=== PATIENT | male | born 1985 | race Caucasian/White ===

== ENCOUNTER 2017-12-07 23:52 | Emergency (ER) | payer OTHER ==
[~2017-12-07] VITALS: Ht 180.3 cm; Wt 99.9 kg
[~2017-12-07 23:52] MED LIST: LEVO1TAB35 PO
[2017-12-07 23:53] VITALS: TEMP 37.4; Ht 180.3 cm; Wt 99.9 kg
[2017-12-08 00:05] VITALS: O2SAT 97
[2017-12-08] MEDS ORDERED: SODIUM CHLORIDE 0.9% 1000ML 1,000 ML IV STA (00:08)
[2017-12-08 00:21] LABS: BASO % 0.6 %; BASO ABS # 0.06 K/uL (0-0.2); EOS % 2.4 %; EOS ABS # 0.26 K/uL (0-0.5); HEMATOCRIT 42.5 % (42-52); HEMOGLOBIN 14.9 g/dL (14.0-18.0); IG# 0.02 K/uL (0.00-0.02); LYMPH % 44.9 %; LYMPH ABS # 4.86 K/uL (1.2-3.4); MEAN CELL VOLUME 90.2 fL (80-100); MEAN CORPUSCULAR HEMOGLOBIN 31.6 pg (25-34); MEAN CORPUSCULAR HGB CONC 35.1 g/dl (32-36); MEAN PLATELET VOLUME 11.4 fL (7.4-10.4); MONO % 12.8 %; MONO ABS # 1.39 K/uL (0.11-0.59); NEUT % 39.1 %; NEUT ABS # 4.24 K/uL (1.4-6.5); PLATELET COUNT 177 K/uL (130-400); RED CELL DISTRIBUTION WIDTH CV 12.5 % (11.5-14.5); RED CELL DISTRIBUTION WIDTH SD 41.3 fL (36.4-46.3); WHITE BLOOD COUNT 10.83 K/uL (4.8-10.8)
--- NOTE | 2017-12-08 00:21 | EMERGENCY ROOM VISIT NOTE ---
History Report prepared by Glen: Tiera Barrow Under the Supervision of: Dr. Camille Velez M.D. First contact with patient: 23:59 Chief Complaint: SYNCOPE Stated Complaint: SYNCOPE Nursing Triage Summary: Patient arrived ALS for evaluation s/p syncope. EMS reports patient drank some coffee today and monster energy drinks and tonight while in bed had what described as a syncopal episode. Patient began vomiting immediately. Patient now reports lightheadedness and dizziness. Patient was given Zofran 4 mg IVP by EMS. Denies pain. Patient reports he drank 3 10 oz cups of coffee and 2 monster energy drinks today. History of Present Illness The patient is a 31 year old male who presents to the Emergency Room with complaints of sudden seizure-like activity occurring shortly prior to arrival. Per , the patient began to "move his arms weird" when she got out of the bathroom. "He was unable to get words out." His reports that the patient then began to vomit while in bed and then fell off of the bed and began to do a humping motion. She assisted his fall, she does not believe he was injured. She states that she called EMS. The patient remained confused after the episode for about 20 minutes. The patient states that he had 3, 10 oz of coffees and 2 monster energy drinks yesterday. He states that he does not take any medications daily. He denies using protein/workout supplements. The patient also reports that he has not smoked marijuana in 3 weeks and that he has been getting around 6 hours of sleep per night, but admits he does not sleep well. Source of History: family, spouse/significant other (girlfriend) Onset: shortly prior to arrival Position: other (global) Quality: other (seizure-like activity ) Timing: other (sudden ) Associated Symptoms: + vomiting Review of Systems See HPI for pertinent positives & negatives. A total of 10 systems reviewed and were otherwise negative. Past Medical & Surgical Medical Problems: (1) No active medical problems Family History Cancer Heart disease Kidney disease Social History Smoking Status: Current Every Day Smoker Drug Use: marijuana Marital Status: Housing Status: lives alone Occupation Status: unemployed, other () Current/Historical Medications No Active Prescriptions or Reported Meds Allergies Coded Allergies: No Known Allergies (Verified , 12/08/17) Physical Exam Vital Signs Date Time Temp Pulse Resp B/P (MAP) Pulse Ox O2 Delivery O2 Flow Rate FiO2 12/08/17 02:35 78 18 125/79 95 Room Air 12/08/17 01:59 81 18 113/60 97 Room Air 12/08/17 01:01 84 18 110/70 96 Room Air 75 121/82 91 119/74 12/08/17 00:05 92 12/08/17 00:05 97 Room Air 12/07/17 23:53 37.4 94 18 140/81 96 Room Air Physical Exam Vital signs reviewed. General: Well-appearing male, in no significant distress. Smells like emesis. HEENT: No scleral icterus, PERRLA, neck supple. Atraumatic. Cardiovascular: Regular rate and rhythm, no extra sounds. Pulmonary: Clear to auscultation bilaterally, normal work of breathing. Abdomen: Soft, nontender, nondistended, positive bowel sounds. Musculoskeletal: Atraumatic, no peripheral edema. Neurologic: Patient awake alert and oriented x 3, full strength in all 4 extremities. Cranial nerves 2 through 12 grossly intact. Skin: Warm, dry, no rash Medical Decision & Procedures ER Provider Diagnostic Interpretation: Radiology results as stated below per my review and [facility]. CT HEAD: No acute intracranial process. Radiology results as stated below per my review. Chest X-Ray: No focal lung consolidation. No failure. Normal mediastinal silhouette. Laboratory Results 12/08/17 00:00 Red Blood Count 4.71, Mean Corpuscular Volume 90.2, Mean Corpuscular Hemoglobin 31.6, Mean Corpuscular Hemoglobin Concent 35.1, Mean Platelet Volume 11.4, Neutrophils (%) (Auto) 39.1, Lymphocytes (%) (Auto) 44.9, Monocytes (%) (Auto) 12.8, Eosinophils (%) (Auto) 2.4, Basophils (%) (Auto) 0.6, Neutrophils # (Auto ) 4.24, Lymphocytes # (Auto) 4.86, Monocytes # (Auto) 1.39, Eosinophils # (Auto ) 0.26, Basophils # (Auto) 0.06 12/08/17 00:00 Test 12/07/17 23:55 12/08/17 00:00 12/08/17 00:18 Urine Color YELLOW Urine Appearance CLEAR (CLEAR) Urine pH 5.5 (4.5-7.5) Urine Specific Dawn 1.034 (1.000-1.030) Urine Protein NEG (NEG) Urine Glucose (UA) NEG (NEG) Urine Ketones TRACE (NEG) Urine Occult Blood NEG (NEG) Urine Nitrite NEG (NEG) Urine Bilirubin NEG (NEG) Urine Urobilinogen NEG (NEG) Urine Leukocyte Esterase NEG (NEG) Urine Opiates Screen NEG (NEG) Urine Methadone, Qualitative NEG (NEG) Urine Barbiturates NEG (NEG) Urine Phencyclidine (PCP) Level NEG (NEG) Ur Amphetamine/Methamphetamine NEG (NEG) MDMA (Ecstasy) Screen NEG (NEG) Urine Benzodiazepines Screen NEG (NEG) Urine Cocaine Metabolite NEG (NEG) Urine Marijuana (THC) POS (NEG) White Blood Count 10.83 K/uL (4.8-10.8) Red Blood Count 4.71 M/uL (4.7-6.1) Hemoglobin 14.9 g/dL (14.0-18.0) Hematocrit 42.5 % (42-52) Mean Corpuscular Volume 90.2 fL (80-100) Mean Corpuscular Hemoglobin 31.6 pg (25-34) Mean Corpuscular Hemoglobin Concent 35.1 g/dl (32-36) Platelet Count 177 K/uL (130-400) Mean Platelet Volume 11.4 fL (7.4-10.4) Neutrophils (%) (Auto) 39.1 % Lymphocytes (%) (Auto) 44.9 % Monocytes (%) (Auto) 12.8 % Eosinophils (%) (Auto) 2.4 % Basophils (%) (Auto) 0.6 % Neutrophils # (Auto) 4.24 K/uL (1.4-6.5) Lymphocytes # (Auto) 4.86 K/uL (1.2-3.4) Monocytes # (Auto) 1.39 K/uL (0.11-0.59) Eosinophils # (Auto) 0.26 K/uL (0-0.5) Basophils # (Auto) 0.06 K/uL (0-0.2) RDW Standard Deviation 41.3 fL (36.4-46.3) RDW Coefficient of Variation 12.5 % (11.5-14.5) Immature Granulocyte % (Auto) 0.2 % Immature Granulocyte # (Auto) 0.02 K/uL (0.00-0.02) Anion Gap 9.0 mmol/L (3-11) Est Creatinine Clear Calc Drug Dose 89.3 ml/min Estimated GFR () 74.6 Estimated GFR (Non- 64.3 BUN/Creatinine Ratio 14.8 (10-20) Calcium Level 8.9 mg/dl (8.5-10.1) Magnesium Level 2.3 mg/dl (1.8-2.4) Total Bilirubin 0.2 mg/dl (0.2-1) Direct Bilirubin < 0.1 mg/dl (0-0.2) Aspartate Amino Transf (AST/SGOT) 30 U/L (15-37) Alanine Aminotransferase (ALT/SGPT) 38 U/L (12-78) Alkaline Phosphatase 63 U/L (45-117) Total Creatine Kinase 706 U/L (39-308) Creatine Kinase MB 3.8 ng/ml (0.5-3.6) Creatine Kinase MB Ratio 0.5 (0-3.0) Total Protein 8.2 gm/dl (6.4-8.2) Albumin 4.2 gm/dl (3.4-5.0) Thyroid Stimulating Hormone (TSH) 3.310 uIu/ml (0.300-4.500) Salicylates Level 2.9 mg/dl (2.8-20) Acetaminophen Level < 2 ug/ml (10-30) Ethyl Alcohol mg/dL < 3.0 mg/dl (0-3) Laboratory results per my review. Medications Administered Medications (Trade) Dose Ordered Sig/Carl Route Start Time Stop Time Status Last Admin Dose Admin Sodium Chloride 1,000 ml @ 999 mls/hr Q1H1M STAT IV 12/08/17 00:08 12/08/17 01:08 DC 12/08/17 00:20 999 MLS/HR ECG Per My Interpretation Indication: other (seizure-like activity ) Rate (beats per minute): 86 Rhythm: normal sinus Findings: no ectopy, other (J point elevation consistent with early repolarization, no PVCs, no PACs, normal intervals ) ED Course 0005: Past medical records reviewed. The patient was evaluated in room B11B. A complete history and physical examination was performed. 0008: Ordered Sodium Chloride 1,000 ml @ 999 mls/hr IV. 0211: I updated the patient and his family. 0233: Upon reevaluation, the patient appeared to have improvement of his symptoms. I discussed findings with him. He verbalized agreement of the treatment plan. He was discharged home. Medical Decision Differential diagnosis: Etiologies such as infection, hypoglycemia, electrolyte abnormalities, cardiac sources, intracerebral event, trauma, toxicologic, neurologic, as well as others were entertained. This pt was evaluated and appeared to be in no distress. He was somewhat agitated, but cooperative. PE is unrevealing. CT head was performed and is negative. Lab work is significant for a mildly elevated creatinine. Pt was hydrated with NSS as it maybe r/t a mild dehydration. Pt was advised of the findings. He was advised not to drive until he is cleared by neurology. [employer] form was submitted. Pt was asked to avoid stimulants, particularly in excess. He will drink plenty of fluids and f/u with neurology CATHI. He was given contact info for Dr Walsh, the on-call neurologist. Case management will assist in scheduling during the daytime hours if necessary. Pt was d/c in care of his family. Medication Reconcilliation Current Medication List: was personally reviewed by me Blood Pressure Screening Patient's blood pressure: Normal blood pressure Impression Primary Impression: Seizure Additional Impression: Adverse effect of TRANSPORTATION CONSULTANT stimulant Scribe Attestation The scribe's documentation has been prepared under my direction and personally reviewed by me in its entirety. I confirm that the note above accurately reflects all work, treatment, procedures, and medical decision making performed by me. Departure Information Dispostion Home / Self-Care Prescriptions No Active Prescriptions or Reported Meds Referrals No Doctor, Assigned (PCP) Arron Richards M.D. Forms HOME CARE DOCUMENTATION FORM, IMPORTANT VISIT INFORMATION Patient Instructions My [facility], Seizures - [facility] Additional Instructions Diagnosis: Seizure, stimulant effect Please stop drinking energy drinks. No more than 1 cup of caffeinated coffee daily. Please drink plenty of clear fluids. Follow-up with neurology, Dr. Walsh, contact information is below. Case management can help assist you with this appointment. Return to the emergency department for worsening of symptoms or any medical concerns. Do not drive until you are cleared by neurology. Problem Qualifiers
[2017-12-08 00:41] LABS: ALBUMIN 4.2 gm/dl (3.4-5.0); ALT/SGPT 38 U/L (12-78); AST/SGOT 30 U/L (15-37); BLOOD UREA NITROGEN 21 mg/dl (7-18); CALCIUM 8.9 mg/dl (8.5-10.1); CARBON DIOXIDE 27 mmol/L (21-32); CREATININE 1.43 mg/dl (0.60-1.40); GLUCOSE 89 mg/dl (70-99); POTASSIUM 3.3 mmol/L (3.5-5.1); SODIUM 139 mmol/L (136-145)
[2017-12-08 00:52] LABS: ALKALINE PHOSPHATASE 63 U/L (45-117); CKMB 3.8 ng/ml (0.5-3.6); TOTAL PROTEIN 8.2 gm/dl (6.4-8.2)
[2017-12-08 02:35] VITALS: BP 125/79; PULSE 78; O2SAT 95
--- NOTE | 2017-12-08 07:07 | DIAGNOSTIC IMAGING REPORT ---
CT SCAN OF THE BRAIN WITHOUT IV CONTRAST CLINICAL HISTORY: Seizure. Syncope. COMPARISON STUDY: No priors. TECHNIQUE: Unenhanced axial CT scan of the brain is performed from the vertex to the skull base. A dose lowering technique was utilized adhering to the principles of ALARA. CT DOSE: 614.27 mGy.cm FINDINGS: Brain parenchyma: The brain parenchyma is normal in appearance. There is no hemorrhage, mass effect, or evidence of acute territorial ischemia by CT criteria. Guo-white matter is preserved. No extra-axial fluid collection is seen. A 2 mm hyperdense focus at the top of the third ventricle may represent a tiny colloid cyst. This is seen image #14. Ventricles, sulci, cisterns: Normal in configuration. Intracranial vasculature: The visualized intracranial vasculature at the skull base is normal in appearance. Calvarium: Unremarkable. Soft tissues: There is a small frontal scalp contusion. Sinuses and mastoids: The visualized paranasal sinuses are clear. The mastoid air cells are well pneumatized. Orbits: The bony orbits are grossly intact. IMPRESSION: 1. No acute intracranial abnormality. 2. Suspect a tiny colloid cyst in the top of the third ventricle. Electronically signed by: Micky Soni M.D. 12/08/2017 7:05 AM Dictated Date/Time: 12/08/2017 7:04 AM
--- NOTE | 2017-12-08 07:24 | DIAGNOSTIC IMAGING REPORT ---
SINGLE VIEW CHEST CLINICAL HISTORY: Seizure. FINDINGS: An AP, portable, upright chest radiograph is obtained. No prior studies are available for comparison at the time of dictation. The examination is degraded by portable technique and apical lordotic positioning. The cardiomediastinal silhouette is unremarkable. The lungs and pleural spaces are clear. No pneumothorax is seen. The bony thorax is grossly intact. IMPRESSION: No active disease in the chest. Electronically signed by: Micky Soni M.D. 12/08/2017 7:23 AM Dictated Date/Time: 12/08/2017 7:23 AM
== END 2017-12-08 02:32 | disposition home or self-care (01) ==
LOC: EDBD 23:52 → C.EDB 23:59
DX: R56.9 Unspecified convulsions (principal); T43.605A Adverse effect of unspecified psychostimulants, initial encounter; R94.4 Abnormal results of kidney function studies; R11.10 Vomiting, unspecified; F17.200 Nicotine dependence, unspecified, uncomplicated; F12.90 Cannabis use, unspecified, uncomplicated; Z83.3 Family history of diabetes mellitus; Z82.49 Family history of ischemic heart disease and other diseases of the circulatory system